=== PATIENT | male | born 1970 | race American Indian/Alaskan Native ===

== ENCOUNTER 2019-11-14 10:16 | Day surgery (SDC) | payer OTHER ==
[~2019-11-14] VITALS: Ht 177.8 cm; Wt 68.2 kg
[2019-11-14 10:35] VITALS: BP 130/76
[2019-11-14] MEDS ORDERED: [UNRECOGNIZED DRUG - CODE] (10:59)
[2019-11-14] MEDS ORDERED: ACET-814 (11:00)
[2019-11-14] MEDS ORDERED: PANT-47 PO (11:00)
[2019-11-14] MEDS ORDERED: fentaNYL/PF 50MCG/1 ML 2ML syringe ONE (11:39)
[2019-11-14] MEDS ORDERED: LIDOcaine Viscous 15ml cup ONE (11:40)
[2019-11-14] MEDS ORDERED: MIDAZolam 5mg/5ml vial ONE (11:40)
[2019-11-14 12:59] VITALS: BP 154/86
[2019-11-14 13:09] VITALS: BP 140/80
[2019-11-14 13:19] VITALS: BP 138/88
[2019-11-14 13:29] VITALS: BP 138/73
== END 2019-11-14 13:49 | disposition home or self-care (01) ==
LOC: GI LAB 10:16
PROVIDERS: ATTEND Internal Medicine Gastroenterology
DX: I85.00 Esophageal varices without bleeding (principal); K76.6 Portal hypertension; K31.89 Other diseases of stomach and duodenum
CPT/HCPCS: 43244; 99152; J2250; J3010; J7040; A4620

== ENCOUNTER 2020-02-02 07:24 | Day surgery (SDC) | payer OTHER ==
[~2020-02-02] VITALS: Ht 177.8 cm; Wt 73.0 kg
[~2020-02-02 07:24] MED LIST: ACET-814; PANT-47 PO; [UNRECOGNIZED DRUG - CODE]
[2020-02-02] MEDS ORDERED: albumin 25% 100mL bottle x 1 IV PRN (07:45)
[2020-02-02] MEDS ORDERED: normal saline 1000ml 1,000 ML IV PRN (07:45)
[2020-02-02 08:01] VITALS: BP 109/69
[2020-02-02 09:10] VITALS: BP 119/73
[2020-02-02 09:15] VITALS: BP 118/77
[2020-02-02 09:30] VITALS: BP 116/74
[2020-02-02 09:45] VITALS: BP 120/70
[2020-02-02 10:31] LABS: BF BILI 5.2 MG/DL; GLUCOSE,BODY FLUID 100 MG/DL; LDH,BODY FLUID 51 U/L
[2020-02-02 10:45] LABS: ALBUMIN,BODY FLUID < 0.6 G/DL
[2020-02-02 12:36] LABS: LYMPHOCYTES,BODY FLUID 86 %; MONOCYTES,BODY FLUID 2 %; NEUTROPHILS,BODY FLUID 12 %
[2020-02-02 12:37] LABS: BFAPPEAR CLEAR
[2020-02-02 12:38] LABS: BF RBC COUNT 78 /CU MM; BF WBC COUNT 196 /CU MM (0-1000); BFCOLOR OTHER; BFVOLUME 57 ML
== END 2020-02-02 10:15 | disposition home or self-care (01) ==
LOC: SSTAY O 07:24
PROVIDERS: ATTEND Radiology Diagnostic Radiology
DX: R18.8 Other ascites (principal); K21.9 Gastro-esophageal reflux disease without esophagitis; Z79.899 Other long term (current) drug therapy; F17.290 Nicotine dependence, other tobacco product, uncomplicated
CPT/HCPCS: 49083; 82042; 82247; 82945; 83615; 87070; 89051

== ENCOUNTER 2020-04-10 06:29 | Day surgery (SDC) | payer BC, OTHER ==
[~2020-04-10] VITALS: Ht 177.8 cm; Wt 61.2 kg
[~2020-04-10 06:29] MED LIST changes: -[UNRECOGNIZED DRUG - CODE]
[2020-04-10] MEDS ORDERED: SPIR100T5 PO (07:03)
[2020-04-10] MEDS ORDERED: ONDA8TAB13 PO (07:03)
[2020-04-10] MEDS ORDERED: PROC10TA10 PO (07:03)
[2020-04-10] MEDS ORDERED: TRAM50TA2 PO (07:03)
[2020-04-10] MEDS ORDERED: FURO40TA4 PO (07:03)
[2020-04-10] MEDS ORDERED: AMYL1CAP57 PO (07:03)
[2020-04-10] MEDS ORDERED: PANT40TA54 PO (07:03)
[2020-04-10] MEDS ORDERED: DOCU-267 PO (07:03)
[2020-04-10] MEDS ORDERED: LIDO30CR23 (07:03)
[2020-04-10 07:56] VITALS: BP 96/68
[2020-04-10 08:30] VITALS: BP 104/71
[2020-04-10 08:45] VITALS: BP 96/70
[2020-04-10 09:00] VITALS: BP 87/63
[2020-04-10 09:03] VITALS: BP 97/71
== END 2020-04-10 09:15 | disposition home or self-care (01) ==
LOC: SSTAY O 06:29
PROVIDERS: ATTEND Radiology Vascular & Interventional Radiology
DX: R18.8 Other ascites (principal); K21.9 Gastro-esophageal reflux disease without esophagitis; F17.290 Nicotine dependence, other tobacco product, uncomplicated; Z85.07 Personal history of malignant neoplasm of pancreas; Z79.899 Other long term (current) drug therapy
CPT/HCPCS: 49083